=== PATIENT | female | born 1990 | race Caucasian/White ===

== ENCOUNTER 2017-11-14 14:03 | Emergency (ER) | payer BC ==
[2017-11-14] MEDS ORDERED: METOCLOPRAMIDE HCL ORAL SOLN 10 MG/10 ML UDCUP PO ONE (14:27)
[2017-11-14] MEDS ORDERED: LIDOCAINE 2% VISCOUS SOLN 20 ML UDCUP PO ONE (14:27)
--- NOTE | 2017-11-14 14:28 | ER Document Report ---
ED Medical Screen (RME) - General Chief Complaint: Abdominal Pain Stated Complaint: ABDOMINAL/BACK PAIN Mode of Arrival: Ambulatory Information source: Patient Notes: 27 y.o female presents to the ED with upper abd pain and back pain of sudden onset around 1200 today after eating a waffle. Pt also reports nausea and vomiting that has been continuous for the past 2.5 hours and is blood tinged. Pt reports that she has gastroparesis for which she does not take any medications. Pt reports that she can usually eat a waffle without trouble but when she does have trouble her vomiting will stop after 15 minutes. Pt has a PSHx of cholecystectomy. I have greeted and performed a rapid initial assessment of the patient. A comprehensive ED assessment and evaluation of the patient, analysis of test results, and completion of the medical decision making process will be conducted by additional ED providers. PHYSICAL EXAM: General: Alert, appears well. HEENT: Normocephalic. Atraumatic. Neck: Supple. Cardiovascular: RRR Respiratory: CTAB Abdominal: No distension. Mild epigastric TTP. Extremities: Moves all four extremities. Neurological: Normal cognition. AAOx4. Normal speech. Psychological: Normal affect. Normal Mood. Skin: Warm. Dry. Normal color. - Related Data Allergies/Adverse Reactions: No Known Allergies Allergy (Unverified 11/14/17 14:08) Physical Exam - Vital signs Vitals: Temp Pulse Resp BP Pulse Ox 97.7 F 64 14 106/52 L 98 11/14/17 14:14 11/14/17 14:14 11/14/17 14:14 11/14/17 14:14 11/14/17 14:14 Course - Vital Signs Vital signs: Temp Pulse Resp BP Pulse Ox 97.7 F 64 14 106/52 L 98 11/14/17 14:14 11/14/17 14:14 11/14/17 14:14 11/14/17 14:14 11/14/17 14:14 Scribe Documentation - Scribe Written by Elias:: Elias Chambers 11/14/17 [id number] acting as scribe for :: Paul
[2017-11-14 14:59] LABS: ABSOLUTE LYMPHOCYTES (AUTO) 1.2 10^3/uL (0.5-4.7); ABSOLUTE MONOCYTES (AUTO) 0.6 10^3/uL (0.1-1.4); ABSOLUTE NEUT (AUTO) 11.2 10^3/uL (1.7-8.2); BASOPHILS % (AUTO) 0.1 % (0-2); EOSINOPHILS % (AUTO) 0.1 % (0-6); HEMATOCRIT 37.6 % (36.0-47.0); HEMOGLOBIN 12.8 g/dL (12.0-15.5); LYMPHOCYTES % (AUTO) 9.5 % (13-45); MEAN CORPUSCULAR HEMOGLOBIN 28.8 pg (27.0-33.4); MEAN CORPUSCULAR VOLUME 85 fl (80-97); MONOCYTES % (AUTO) 4.4 % (3-13); PLATELET COUNT 208 10^3/uL (150-450); RED BLOOD COUNT 4.43 10^6/uL (3.72-5.28); RED CELL DISTRIBUTION WIDTH 13.2 % (11.5-14.0); SEGMENTED NEUTROPHILS % (AUTO) 85.9 % (42-78); TOTAL CELLS COUNTED % (AUTO) 100 %
--- NOTE | 2017-11-14 15:03 | ER Document Report ---
ED GI/ - General Chief Complaint: Abdominal Pain Stated Complaint: ABDOMINAL/BACK PAIN Time Seen by Provider: 11/14/17 14:22 Mode of Arrival: Ambulatory Information source: Patient - HPI Patient complains to provider of: Abdominal pain Onset: This afternoon - 12 NOON Timing/Duration: Sudden Quality of pain: Sharp, Stabbing Severity at maximum: Moderate Severity in ED: Mild Context: denies: Bad food, Lifting, [place] the [place] travel, , Recent trauma Location: Epigastric Vaginal bleeding (Compared to normal period): None Menstrual period history: denies: Similar symptoms previously: Yes - GSTROPARESIS?? Recently seen / treated by doctor: No - Related Data Allergies/Adverse Reactions: No Known Allergies Allergy (Unverified 11/14/17 14:08) Past Medical History - General Information source: Patient - Social History Smoking Status: Never Smoker Chew tobacco use (# tins/day): No Frequency of alcohol use: None Drug Abuse: None Lives with: Spouse/Significant other - [place], [place]. Family History: Reviewed & Not Pertinent Patient has suicidal ideation: No Patient has homicidal ideation: No - Past Medical History Cardiac Medical History: Reports: None Pulmonary Medical History: Reports: None EENT Medical History: Reports: None Neurological Medical History: Reports: None Endocrine Medical History: Reports: None Renal/ Medical History: Reports: None. Denies: Hx Peritoneal Dialysis Malignancy Medical History: Reports: None GI Medical History: Reports: Other - GASTROPARESIS Musculoskeltal Medical History: Reports None Psychiatric Medical History: Reports: None Past Surgical History: Reports: Hx Cholecystectomy Review of Systems - Review of Systems Constitutional: No symptoms reported EENT: No symptoms reported Cardiovascular: No symptoms reported Respiratory: No symptoms reported Gastrointestinal: See HPI Genitourinary: No symptoms reported Female Genitourinary: denies: Musculoskeletal: No symptoms reported Skin: No symptoms reported Neurological/Psychological: No symptoms reported Physical Exam - Vital signs Vitals: Temp Pulse Resp BP Pulse Ox 97.7 F 64 14 106/52 L 98 11/14/17 14:14 11/14/17 14:14 11/14/17 14:14 11/14/17 14:14 11/14/17 14:14 Interpretation: Hypotensive. No: Tachycardic, Tachypneic, Febrile - General General appearance: Appears well, Alert In distress: None - HEENT Head: Normocephalic Eyes: Normal Conjunctiva: Normal Ears: Normal Nasal: Normal Mouth/Lips: Normal Mucous membranes: Normal - Respiratory Respiratory status: No respiratory distress Breath sounds: Normal - Cardiovascular Rhythm: Regular Heart sounds: Normal auscultation Murmur: No - Abdominal Inspection: Normal Distension: No distension Bowel sounds: Hypoactive Tenderness: Tender - EPIGASTRIUM Organomegaly: No organomegaly - Back Back: Normal, CVA tenderness - MILD, BILAT. - Extremities General upper extremity: Normal inspection General lower extremity: Normal inspection - Neurological Neuro grossly intact: Yes Cognition: Normal Orientation: AAOx4 - Psychological Associated symptoms: Normal affect, Normal mood - Skin Skin Temperature: Warm Skin Moisture: Dry Skin Color: Normal Skin Turgor: Elastic Course - Re-evaluation Re-evalutation: 11/14/17 19:22 Patient reports her discomfort is slowly fading. Results of laboratory and ultrasound imaging studies discussed. Differential diagnosis discussed. Will discharge with instructions for outpatient follow-up. - Vital Signs Vital signs: Temp Pulse Resp BP Pulse Ox 97.7 F 64 14 106/52 L 98 11/14/17 14:14 11/14/17 14:14 11/14/17 14:14 11/14/17 14:14 11/14/17 14:14 - Laboratory Result Diagrams: 11/14/17 14:45 11/14/17 14:45 Laboratory results interpreted by me: 11/14/17 11/14/17 14:45 14:45 WBC 13.0 H Seg Neutrophils % 85.9 H Lymphocytes % 9.5 L Absolute Neutrophils 11.2 H BUN 6 L Direct Bilirubin 0.8 H AST 121 H ALT 68 H - Diagnostic Test Radiology reviewed: Image reviewed, Reports reviewed Discharge - Discharge Clinical Impression: Abnormal liver function tests Abdominal pain Qualifiers: Abdominal location: epigastric Qualified Code(s): R10.13 - Epigastric pain Condition: Stable Disposition: HOME, SELF-CARE Instructions: Abdominal Pain ([facility]), Antinausea Medication ([facility]), Oral Narcotic Medication ([facility]) Additional Instructions: BLAND DIET, AVOID GREASY OR SPICY FOODS. CONTINUE YOUR USUAL MEDICATIONS. YOU MAY TAKE ZOFRAN FOR NAUSEA CONTROL IF NEEDED. YOU MAY TAKE NORCO IF NEEDED FOR PAIN CONTROL. FOLLOW UP WITH YOUR PRIMARY CARE PROVIDER WHEN YOU RETURN HOME. RETURN TO E.R. IF PROBLEMS, ANY TIME. Prescriptions: Hydrocodone/Acetaminophen [Slade 5-325 mg Tablet] 1 tab PO Q4HP PRN #14 tablet PRN Reason: For Pain Ondansetron [Zofran Odt 4 mg Tablet] 1 - 2 tab PO Q4H #10 tab.naz
[2017-11-14 15:09] LABS: APPEARANCE,URINE CLEAR; BILIRUBIN,URINE NEGATIVE (NEGATIVE); COLOR,URINE YELLOW; GLUCOSE, URINE NEGATIVE (NEGATIVE); KETONES,URINE NEGATIVE (NEGATIVE); LEUKOCYTE ESTERASE,URINE NEGATIVE (NEGATIVE); NITRITE,URINE NEGATIVE (NEGATIVE); PROTEIN,URINE NEGATIVE (NEGATIVE); URINE SPECIFIC GRAVITY 1.009; UROBILINOGEN,URINE NEGATIVE mg/dL (<2.0)
[2017-11-14 15:20] LABS: ALANINE AMINOTRANSFERASE 68 U/L (9-52); ALBUMIN 4.2 g/dL (3.5-5.0); ALKALINE PHOSPHATASE 113 U/L (38-126); ANION GAP 14 (5-19); ASPARTATE AMINO TRANSFERASE 121 U/L (14-36); BILIRUBIN,DIRECT 0.8 mg/dL (0.0-0.4); BILIRUBIN,TOTAL 0.9 mg/dL (0.2-1.3); BLOOD UREA NITROGEN 6 mg/dL (7-20); CALCIUM 9.2 mg/dL (8.4-10.2); CARBON DIOXIDE 28 mmol/L (22-30); CHLORIDE 103 mmol/L (98-107); GLUCOSE 92 mg/dL (75-110); LIPASE 76.5 U/L (23-300); POTASSIUM 4.2 mmol/L (3.6-5.0); SODIUM 144.7 mmol/L (137-145); TOTAL PROTEIN 7.6 g/dL (6.3-8.2)
[2017-11-14] MEDS ORDERED: NORMAL SALINE 1000 ML 1,000 ML IV PRN (15:32)
[2017-11-14 15:46] LABS: URINE AMPHETAMINES SCREEN NEGATIVE; URINE BARBITURATES SCREEN NEGATIVE; URINE BENZODIAZEPINES SCREEN NEGATIVE; URINE COCAINE SCREEN NEGATIVE; URINE MARIJUANA (THC) SCREEN NEGATIVE; URINE METHADONE SCREEN NEGATIVE; URINE PHENCYCLIDINE SCREEN NEGATIVE
--- NOTE | 2017-11-14 18:58 | RADIOLOGY REPORT (SQ) ---
EXAM DESCRIPTION: U/S ABDOMEN LIMITED W/O DOP COMPLETED DATE/TIME: 11/14/2017 6:48 pm REASON FOR STUDY: EPIGASTRIC R.U.Q. PAIN COMPARISON: None. TECHNIQUE: Dynamic and static grayscale images acquired of the abdomen and recorded on PACS. Additio salvador selected color Doppler and spectral images recorded. LIMITATIONS: None. FINDINGS: PANCREAS: No masses. Visualized pancreatic duct normal caliber. LIVER: No masses. Echotexture normal. LIVER VASCULATURE: Normal directional flow of the main portal vein and hepatic veins. GALLBLADDER: Completely contracted. No definitive stones. ULTRASOUND-DETECTED HOLLOWAY'S SIGN: Negative. INTRAHEPATIC DUCTS AND COMMON DUCT: Common duct dilated distally 8.4 mm. INFERIOR VENA CAVA: Normal flow. AORTA: No aneurysm. RIGHT KIDNEY: Normal size. Normal echogenicity. No solid or suspicious masses. No hydronephrosis. No calcifications. PERITONEAL AND RIGHT PLEURAL SPACE: No ascites or effusions. OTHER: No other significant findings. IMPRESSION: Gallbladder is completely contracted without definitive stones. Mild dilatation of the common bile duct. TECHNICAL DOCUMENTATION: JOB ID: [id number]- All Rights Reserved Reading location - IP/workstation name: [email or web address]
[2017-11-14 20:34] VITALS: BP 100/70
== END 2017-11-14 20:13 | disposition home or self-care (01) ==
LOC: ER 14:03
DX: R10.13 Epigastric pain (principal); R79.89 Other specified abnormal findings of blood chemistry; Z90.49 Acquired absence of other specified parts of digestive tract; Z87.19 Personal history of other diseases of the digestive system
CPT/HCPCS: 99284; 96360; 36415; 83690; 84703; 85025; 80053; 81001; 80307; 76705; J3490; J7030